=== PATIENT | male | born 1995 | race African-American/Black ===

== ENCOUNTER 2016-06-14 05:59 | Emergency (ER) | payer SELFPAY ==
[~2016-06-14] VITALS: Ht 172.7 cm; Wt 73.6 kg
[~2016-06-14 05:59] MED LIST: AMOXICILLIN 50500 MG PO; ULTRAM 50MG TAB50 MG PO
[2016-06-14] MEDS ORDERED: AMOXICILLIN 50500 MG PO (06:15)
[2016-06-14] MEDS ORDERED: NORCO 325 MG-51 TAB PO (06:15)
[2016-06-14 06:20] VITALS: BP 142/73; PULSE 67; TEMP 98.2
== END 2016-06-14 06:20 | disposition home or self-care (01) ==
LOC: COL.ER 05:59
DX: K08.89 Other specified disorders of teeth and supporting structures (principal)

== ENCOUNTER 2016-06-19 21:20 | Emergency (ER) | payer SELFPAY ==
[~2016-06-19] VITALS: Ht 172.7 cm; Wt 73.2 kg
[~2016-06-19 21:20] MED LIST changes: +NORCO 325 MG-51 TAB PO
[2016-06-19 21:22] VITALS: TEMP 97.7
[2016-06-19 22:23] VITALS: BP 130/76; PULSE 70
== END 2016-06-19 22:26 | disposition home or self-care (01) ==
LOC: COL.ER 21:20
DX: K03.81 Cracked tooth (principal)